=== PATIENT | male | born 2000 | race Two or more races ===

== ENCOUNTER 2024-09-10 21:55 | Emergency (ER) | payer SELFPAY ==
[~2024-09-10] VITALS: Ht 170.2 cm; Wt 72.7 kg
[2024-09-10 22:09] VITALS: BP 111/72; PULSE 103; RESP 20; TEMP 98.5; O2SAT 100
== END 2024-09-11 00:19 | disposition left against medical advice (07) ==
LOC: EMS 22:12
DX: S00.31XA Abrasion of nose, initial encounter (principal); Z53.21 Procedure and treatment not carried out due to patient leaving prior to being seen by health care provider; X58.XXXA Exposure to other specified factors, initial encounter; Y93.89 Activity, other specified; Y92.89 Other specified places as the place of occurrence of the external cause; Y99.8 Other external cause status